=== PATIENT | female | born 2000 | race Two or more races ===

== ENCOUNTER 2023-04-23 13:41 | Emergency (ER) | payer MEDICAID, OTHER ==
[~2023-04-23] VITALS: Ht 160 cm; Wt 86.5 kg
[2023-04-23 14:43] LABS: Urine Bacteria NONE SEEN /hpf (None Seen); Urine Blood 3+ /uL (Negative); Urine Mucus FEW (None Seen); Urine Specific Gravity 1.024 (1.001-1.035); Urine WBC 32 /hpf (0 - 5)
[2023-04-23 15:07] LABS: Potassium 4.1 mmol/L (3.5-5.1)
[2023-04-23 15:08] LABS: Albumin 3.2 g/dL (3.4-5.0); Calcium 8.2 mg/dL (8.5-10.1)
[2023-04-23 15:10] LABS: BUN/Creatinine Ratio 7.5 (10.0-20.0); Bilirubin, Total 0.5 mg/dL (0.2-1.0); Total Protein 7.1 g/dL (6.4-8.2)
[2023-04-23] MEDS ORDERED: NITR-87 PO (15:57)
[2023-04-23 16:20] VITALS: BP 121/55
== END 2023-04-23 16:22 | disposition home or self-care (01) ==
LOC: ER 13:41
DX: O20.0 Threatened abortion (principal); O23.41 Unspecified infection of urinary tract in pregnancy, first trimester; N39.0 Urinary tract infection, site not specified; Z3A.12 12 weeks gestation of pregnancy
CPT/HCPCS: 36415; 76801; 80053; 81001; 84702